=== PATIENT | female | born 1995 | race American Indian/Alaskan Native ===

== ENCOUNTER 2020-11-13 09:52 | Emergency (ER) | payer MEDICAID ==
[2020-11-13 10:09] VITALS: BP 134/90
[2020-11-13] MEDS ORDERED: ALBUTEROL 2.5 MG/3 ML NEBU IH ONE (12:41)
[2020-11-13] MEDS ORDERED: IPRATROPIUM 0.02% NEBU 2.5 ML IH ONE (12:41)
[2020-11-13] MEDS ORDERED: dexAMETHasone 20 MG/5 ML VIAL IV ONE (12:41)
[2020-11-13 13:13] LABS: Basophils % (Auto) 0.5 % (0.0-1.8); Eosinophils # (Auto) 0.5 K/mm3 (0.0-0.4); Eosinophils % (Auto) 5.1 % (0.0-4.3); Hematocrit 44.3 % (30.3-42.9); Hemoglobin 15.1 gm/dl (10.1-14.3); Lymphocytes # (Auto) 1.6 K/mm3 (1.2-5.4); Lymphocytes % (Auto) 17.2 % (13.4-35.0); Mean Corpuscular HGB Conc 34 % (30-34); Mean Corpuscular Volume 91 fl (79-97); Monocytes # (Auto) 0.5 K/mm3 (0.0-0.8); Monocytes % (Auto) 4.9 % (0.0-7.3); Platelet Count 346 K/mm3 (140-440); Red Blood Count 4.86 M/mm3 (3.65-5.03)
[2020-11-13 13:33] LABS: Alanine Aminotransferase 19 units/L (7-56); Albumin 4.5 g/dL (3.9-5); BUN/Creatinine Ratio 16; Blood Urea Nitrogen 14 mg/dL (7-17); Calcium 9.8 mg/dL (8.4-10.2); Hemolysis Index 8
[2020-11-13 13:37] LABS: INR 0.95 (0.87-1.13)
[2020-11-13 13:38] LABS: Partial Thromboplastin Time 28.4 Sec. (24.2-36.6)
--- NOTE | 2020-11-13 14:56 | XRay Report ---
CHEST 2 VIEWS INDICATION: Chest Pain. COMPARISON: None. FINDINGS: Support devices: None. Heart: Within normal limits. Lungs/Pleura: No acute air space or interstitial disease. No significant pleural effusion. IMPRESSION: No acute findings. Signer Name: Declan Soto MD Signed: 11/13/2020 2:51 PM Workstation Name: [id number]
--- NOTE | 2020-11-13 15:08 | Emergency Department Report ---
ED Asthma HPI - General Chief Complaint: Dyspnea/Respdistress Stated Complaint: ASTHMA Time Seen by Provider: 11/13/20 12:40 Source: patient Mode of arrival: Ambulatory Limitations: No Limitations - History of Present Illness Initial Comments: This is a 25-year-old female nontoxic, well nourished in appearance, no acute signs of distress presents to the ED with c/o of shortness of breath and wheezing times several days. Stated has some chest tightness but denies any pain. Patient stated has been taking her inhaler with no relief. Patient denies any cough. Patient denies any sick contact. Patient denies any recent travels, long car, recent hospital stays. Patient denies any calf pain or calf tenderness. Patient denies any chest pain, fever, chills, nausea, vomiting, hemoptysis, numbness, tingling, headache or stiff neck. Patient denies any allergies. MD Complaint: "asthma attack", shortness of breath, wheezing -: days(s) Asthma History: childhood onset Severity: mild Context: none known Associated Symptoms: none. denies: productive cough, dry cough, fever, chest pain, hemoptysis, leg edema, syncope Treatments Prior to Arrival: inhaled bronchodilator - Related Data Current Asthma Therapy: inhaled bronchodilator Previous Rx's Medication Instructions Recorded Last Taken Type Albuterol Mdi (or & Nicu Only) 2 puff IH QID PRN #8.5 gram 11/13/20 Unknown Rx [ProAir HFA Inhaler] Prednisone [predniSONE 10 mg 10 mg PO .TAPER #1 tab.ds.pk 11/13/20 Unknown Rx (6-Day Pack, 21 Tabs)] Allergies Allergy/AdvReac Type Severity Reaction Status Date / Time No Known Allergies Allergy Unverified 11/13/20 10:07 ED Review of Systems ROS: Stated complaint: ASTHMA Other details as noted in HPI Comment: All other systems reviewed and negative Constitutional: denies: chills, fever Eyes: denies: eye pain, eye discharge, vision change ENT: denies: ear pain, throat pain Respiratory: shortness of breath, wheezing. denies: cough, orthopnea, SOB with exertion, SOB at rest, stridor Cardiovascular: denies: chest pain, palpitations Endocrine: no symptoms reported Gastrointestinal: denies: abdominal pain, nausea, diarrhea Genitourinary: denies: urgency, dysuria, discharge Musculoskeletal: denies: back pain, joint swelling, arthralgia Skin: denies: rash, lesions Neurological: denies: headache, weakness, paresthesias Psychiatric: denies: anxiety, depression Hematological/Lymphatic: denies: easy bleeding, easy bruising ED Past Medical Hx - Past Medical History Previous Medical History?: Yes Hx Asthma: Yes - Surgical History Past Surgical History?: No - Medications Home Medications: Home Medications Medication Instructions Recorded Confirmed Last Taken Type Albuterol Mdi (or & Nicu Only) 2 puff IH QID PRN #8.5 gram 11/13/20 Unknown Rx [ProAir HFA Inhaler] Prednisone [predniSONE 10 mg 10 mg PO .TAPER #1 tab.ds.pk 11/13/20 Unknown Rx (6-Day Pack, 21 Tabs)] ED Physical Exam - General Limitations: No Limitations General appearance: alert, in no apparent distress - Head Head exam: Present: atraumatic, normocephalic - Eye Eye exam: Present: normal appearance - Neck Neck exam: Present: normal inspection, full ROM. Absent: lymphadenopathy - Respiratory Respiratory exam: Present: wheezes (Bilateral expiratory). Absent: respiratory distress, rales, rhonchi, stridor, chest wall tenderness, accessory muscle use, decreased breath sounds, prolonged expiratory - Cardiovascular Cardiovascular Exam: Present: regular rate, normal rhythm, tachycardia, normal heart sounds. Absent: bradycardia, irregular rhythm, systolic murmur, diastolic murmur, rubs, gallop - GI/Abdominal GI/Abdominal exam: Present: soft, normal bowel sounds. Absent: distended, tenderness, guarding, rebound, rigid, diminished bowel sounds - Extremities Exam Extremities exam: Present: normal inspection, full ROM - Back Exam Back exam: Present: normal inspection, full ROM. Absent: tenderness, CVA tenderness (R), CVA tenderness (L), muscle spasm, paraspinal tenderness, ve rtebral tenderness, rash noted - Neurological Exam Neurological exam: Present: alert, oriented X3, normal gait - Psychiatric Psychiatric exam: Present: normal affect, normal mood - Skin Skin exam: Present: warm, dry, intact, normal color. Absent: rash ED Course Vital Signs 11/13/20 10:08 Temperature 98.1 F Pulse Rate 111 H Respiratory 20 Rate Blood Pressure 134/90 [Right] O2 Sat by Pulse 94 Oximetry - Reevaluation(s) Reevaluation #1: 11/13/20 15:02 Patient is speaking in full sentences with no signs of distress noted. ED Medical Decision Making - Lab Data Result diagrams: 11/13/20 12:44 11/13/20 12:44 Lab Results 11/13/20 11/13/20 11/13/20 Range/Units 12:44 12:44 12:44 WBC 9.2 (4.5-11.0) K/mm3 RBC 4.86 (3.65-5.03) M/mm3 Hgb 15.1 H (10.1-14.3) gm/dl Hct 44.3 H (30.3-42.9) % MCV 91 (79-97) fl MCH 31 (28-32) pg MCHC 34 (30-34) % RDW 13.0 L (13.2-15.2) % Plt Count 346 (140-440) K/mm3 Lymph % (Auto) 17.2 (13.4-35.0) % Robertson % (Auto) 4.9 (0.0-7.3) % Eos % (Auto) 5.1 H (0.0-4.3) % Baso % (Auto) 0.5 (0.0-1.8) % Lymph # (Auto) 1.6 (1.2-5.4) K/mm3 Robertson # (Auto) 0.5 (0.0-0.8) K/mm3 Eos # (Auto) 0.5 H (0.0-0.4) K/mm3 Baso # (Auto) 0.0 (0.0-0.1) K/mm3 Seg Neutrophils % 72.3 H (40.0-70.0) % Seg Neutrophils # 6.7 (1.8-7.7) K/mm3 PT 13.2 (12.2-14.9) Sec. INR 0.95 (0.87-1.13) APTT 28.4 (24.2-36.6) Sec. D-Dimer (0-234) ng/mlDDU Sodium 134 L (137-145) mmol/L Potassium 4.7 (3.6-5.0) mmol/L Chloride 98.6 (98-107) mmol/L Carbon Dioxide 27 (22-30) mmol/L Anion Gap 13 mmol/L BUN 14 (7-17) mg/dL Creatinine 0.9 (0.6-1.2) mg/dL Estimated GFR > 60 ml/min BUN/Creatinine Ratio 16 % Glucose 86 (65-100) mg/dL Calcium 9.8 (8.4-10.2) mg/dL Total Bilirubin 0.40 (0.1-1.2) mg/dL AST 18 (5-40) units/L ALT 19 (7-56) units/L Alkaline Phosphatase 104 (35-129) units/L Troponin T < 0.010 (0.00-0.029) ng/mL Total Protein 8.4 H (6.3-8.2) g/dL Albumin 4.5 (3.9-5) g/dL Albumin/Globulin Ratio 1.2 % HCG, Qual (Negative) 11/13/20 11/13/20 Range/Units 12:44 13:32 WBC (4.5-11.0) K/mm3 RBC (3.65-5.03) M/mm3 Hgb (10.1-14.3) gm/dl Hct (30.3-42.9) % MCV (79-97) fl MCH (28-32) pg MCHC (30-34) % RDW (13.2-15.2) % Plt Count (140-440) K/mm3 Lymph % (Auto) (13.4-35.0) % Robertson % (Auto) (0.0-7.3) % Eos % (Auto) (0.0-4.3) % Baso % (Auto) (0.0-1.8) % Lymph # (Auto) (1.2-5.4) K/mm3 Robertson # (Auto) (0.0-0.8) K/mm3 Eos # (Auto) (0.0-0.4) K/mm3 Baso # (Auto) (0.0-0.1) K/mm3 Seg Neutrophils % (40.0-70.0) % Seg Neutrophils # (1.8-7.7) K/mm3 PT (12.2-14.9) Sec. INR (0.87-1.13) APTT (24.2-36.6) Sec. D-Dimer 163.26 (0-234) ng/mlDDU Sodium (137-145) mmol/L Potassium (3.6-5.0) mmol/L Chloride (98-107) mmol/L Carbon Dioxide (22-30) mmol/L Anion Gap mmol/L BUN (7-17) mg/dL Creatinine (0.6-1.2) mg/dL Estimated GFR ml/min BUN/Creatinine Ratio % Glucose (65-100) mg/dL Calcium (8.4-10.2) mg/dL Total Bilirubin (0.1-1.2) mg/dL AST (5-40) units/L ALT (7-56) units/L Alkaline Phosphatase (35-129) units/L Troponin T (0.00-0.029) ng/mL Total Protein (6.3-8.2) g/dL Albumin (3.9-5) g/dL Albumin/Globulin Ratio % HCG, Qual Negative (Negative) - EKG Data 11/13/20 15:40 EKG normal sinus rhythm at 97 bpm. No STEMI. Reviewed and signed by . - Radiology Data [facility] [address] [place] [address] XRay Report Signed Patient: TONI TAVERAS MR#: [id number] : 1995 Acct:[id number] Age/Sex: 25 / F ADM Date: 11/13/20 Loc: ED Attending Dr: Ordering Physician: NICOLAS BHANDARI NP Date of Service: 11/13/20 Procedure(s): XR chest routine 2V Accession Number(s): [id number] cc: NICOLAS BHANDARI NP Fluoro Time In Minutes: CHEST 2 VIEWS INDICATION: Chest Pain. COMPARISON: None. FINDINGS: Support devices: None. Heart: Within normal limits. Lungs/Pleura: No acute air space or interstitial disease. No significant pleural effusion. IMPRESSION: No acute findings. Signer Name: Declan Soto MD Signed: 11/13/2020 2:51 PM Workstation Name: [id number] Transcribed By: ES Dictated By: Declan Soto MD Electronically Authenticated By: Declan Soto MD Signed Date/Time: 11/13/201450 DD/ 50 TD/TT: - Medical Decision Making This is a 25-year-old female that presents with asthma exacerbation. Patient is stable and was examined by me. Chest x-ray has been obtained and dictated by the radiologist within normal limits. Patient is notified of the x-ray report with no questions noted by the patient. Patient did receive breathing treatment and steroids in the ED which patient the symptoms has resolved and subsided. Posttreatment and there is no wheezing upon auscultation. Patient is discharged with albuterol and prednisone. VSS stable at discharge (see EKG for updated HR). Patient was referred to Follow-up with a primary care doctor in 3-5 days or if symptoms worsen and continue return to emergency room as soon as possible. At time of discharge, the patient does not seem toxic or ill in appearance. No acute signs of distress noted. Patient agrees to discharge treatment plan of care. No further questions noted by the patient. This chart is dictated with using [employer] Dictation Program - Differential Diagnosis PE, bronchiolitis, asthma excerbation Critical care attestation.: If time is entered above; I have spent that time in minutes in the direct care of this critically ill patient, excluding procedure time. ED Disposition Clinical Impression: Asthma exacerbation Qualifiers: Asthma severity: mild Asthma persistence: intermittent Qualified Code(s): J45.21 - Mild intermittent asthma with (acute) exacerbation Disposition: -01 TO HOME OR SELFCARE Is pt being admited?: No Does the pt Need Aspirin: No Condition: Stable Instructions: Asthma, Adult, [id number], Asthma Attack Prevention, Adult Additional Instructions: Follow-up with a primary care doctor in 3-5 days or if symptoms worsen and continue return to emergency room as soon as possible. Prescriptions: Prednisone [predniSONE 10 mg (6-Day Pack, 21 Tabs)] 10 mg PO .TAPER #1 tab.ds.pk Albuterol Mdi (or & Nicu Only) [ProAir HFA Inhaler] 2 puff IH QID PRN #8.5 gram PRN Reason: Shortness Of Breath Referrals: AMBER ELIZABETH [Other] - 3-5 Days PRIMARY CAREMD [Referring] - 3-5 Days TRUE BRITTON MD [Staff Physician] - 3-5 Days Forms: Work/School Release Form(ED) Time of Disposition: 15:14
--- NOTE | 2020-11-14 10:10 | Electrocardiograph Report ---
[facility] Test Date: 2020-11-13 Test Time: 15:19:17 Pat Name: TONI TAVERAS Department: Room: Gender: F [employer]er: NIDIA : 1995 Requested By: NICOLAS BHANDARI Order Number: [id number] Reading MD: Clayton Landeros Measurements Intervals Brohman Rate: 97 P: 59 SD: 176 QRS: 58 QRSD: 84 T: -33 QT: 342 QTc: 436 Interpretive Statements Sinus rhythm Probable left atrial enlargement Borderline T abnormalities, diffuse leads No previous ECG available for comparison Electronically Signed On 11-14-2020 10:10:41 EDT by Clayton Landeros
== END 2020-11-13 15:43 | disposition home or self-care (01) ==
LOC: ED 09:52
DX: J45.21 Mild intermittent asthma with (acute) exacerbation (principal)
CPT/HCPCS: 36415; 71046; 80053; 84484; 84703; 85025; 85379; 85610; 85730; 93005; 94640; 96374; 99284; J1100

== ENCOUNTER 2020-12-30 09:36 | Emergency (ER) | payer MEDICAID ==
--- NOTE | 2020-12-30 11:10 | Emergency Department Report ---
ED Asthma HPI - General Stated Complaint: ASTHMA Time Seen by Provider: 12/30/20 10:58 - History of Present Illness Initial Comments: Patient presents secondary to an asthma attack. For the last 2 days, she has had trouble breathing. She has had a dry cough. She has been wheezing. She has been using her inhaler without symptomatic improvement. There is no history of recent travel or trauma. She has had no sick contacts. She has had no known allergen exposure. She has been using her inhaler multiple times a day without improvement. She states that she was on prednisone about a month or 2 ago. That seemed to help at that time. She is not on inhaled steroid because her insurance would not pay for it. She has not taken an inhaled steroid for approximately 2 years. Again, she has been admitted before but never intubated. - Related Data Previous Rx's Medication Instructions Recorded Last Taken Type Albuterol Mdi (or & Nicu Only) 2 puff IH QID PRN #8.5 gram 11/13/20 Unknown Rx [ProAir HFA Inhaler] Prednisone [predniSONE 10 mg 10 mg PO .TAPER #1 tab.ds.pk 11/13/20 Unknown Rx (6-Day Pack, 21 Tabs)] Budesonide/Formoterol Fumarate 10.2 gm IH DAILY #1 hfa.aer.ad 12/30/20 Unknown Rx [Symbicort 160-4.5 Mcg Inhaler] Ipratropium [Atrovent] 0.5 mg IH Q6HRT #90 ml 12/30/20 Unknown Rx Prednisone [predniSONE 10 mg 10 mg PO .TAPER #1 tab.ds.pk 12/30/20 Unknown Rx (6-Day Pack, 21 Tabs)] Allergies Allergy/AdvReac Type Severity Reaction Status Date / Time No Known Allergies Allergy Unverified 11/13/20 10:07 ED Review of Systems ROS: Stated complaint: ASTHMA Other details as noted in HPI Comment: All other systems reviewed and negative Constitutional: denies: fever Eyes: denies: eye pain ENT: denies: throat pain Respiratory: no symptoms reported Cardiovascular: denies: chest pain Endocrine: denies: unexplained weight loss Gastrointestinal: denies: abdominal pain Genitourinary: denies: dysuria Musculoskeletal: denies: back pain Skin: denies: rash Neurological: denies: headache Hematological/Lymphatic: denies: easy bruising ED Past Medical Hx - Past Medical History Previous Medical History?: Yes Hx Asthma: Yes - Family History Family history: no significant - Medications Home Medications: Home Medications Medication Instructions Recorded Confirmed Last Taken Type Albuterol Mdi (or & Nicu Only) 2 puff IH QID PRN #8.5 gram 11/13/20 Unknown Rx [ProAir HFA Inhaler] Prednisone [predniSONE 10 mg 10 mg PO .TAPER #1 tab.ds.pk 11/13/20 Unknown Rx (6-Day Pack, 21 Tabs)] Budesonide/Formoterol Fumarate 10.2 gm IH DAILY #1 hfa.aer.ad 12/30/20 Unknown Rx [Symbicort 160-4.5 Mcg Inhaler] Ipratropium [Atrovent] 0.5 mg IH Q6HRT #90 ml 12/30/20 Unknown Rx Prednisone [predniSONE 10 mg 10 mg PO .TAPER #1 tab.ds.pk 12/30/20 Unknown Rx (6-Day Pack, 21 Tabs)] ED Physical Exam - General Limitations: No Limitations, Other ( Pulse ox was noted and normal.) General appearance: alert, in distress ( Mild to moderate) - Head Head exam: Present: atraumatic, normocephalic, normal inspection - Eye Eye exam: Present: normal appearance, EOMI. Absent: scleral icterus - ENT ENT exam: Present: normal exam, normal orophraynx, normal external ear exam - Neck Neck exam: Present: normal inspection. Absent: meningismus - Respiratory Respiratory exam: Present: respiratory distress ( mild to moderate), wheezes ( bilateral), prolonged expiratory - Cardiovascular Cardiovascular Exam: Present: regular rate, normal rhythm - GI/Abdominal GI/Abdominal exam: Present: soft. Absent: tenderness - Extremities Exam Extremities exam: Present: normal capillary refill. Absent: pedal edema - Back Exam Back exam: Present: full ROM - Neurological Exam Neurological exam: Present: alert, oriented X3, CN II-XII intact, reflexes normal. Absent: motor sensory deficit - Psychiatric Psychiatric exam: Present: normal affect - Skin Skin exam: Present: warm, dry ED Course Vital Signs 12/30/20 13:10 Pulse Rate [ 93 H Anterior Bilateral Throughout] Respiratory 15 Rate [Anterior Bilateral Throughout] - Reevaluation(s) Reevaluation #1: 12/30/20 11:00 DuoNeb and prednisone were ordered. Reevaluation #2: 12/30/20 11:24 After treatment, patient felt better. She was not hypoxic. She was discharged. ED Medical Decision Making - Medical Decision Making Patient presented with shortness of breath and asthma exacerbation. She does not have evidence of respiratory failure. She certainly does not require ad mission. Patient does not appear to be hypoxic. She does not have respiratory symptoms consistent with Covid. There has been no cough or infectious pathology noted. She was treated empirically with medications and referred for outpatient evaluation and follow-up. She does not have chest pain and does not have hypoxia that would suggest pulmonary embolism. She certainly does not have evidence of respiratory distress or pedal edema suggestive of congestive heart failure. Critical Care Time: No Critical care attestation.: If time is entered above; I have spent that time in minutes in the direct care of this critically ill patient, excluding procedure time. ED Disposition Clinical Impression: Asthma exacerbation Disposition: HOME / SELF CARE / HOMELESS Is pt being admited?: No Does the pt Need Aspirin: No Condition: Stable Instructions: Asthma, Adult Additional Instructions: Drink plenty water. Return for problems. Follow-up with your regular doctor. Use the medications as prescribed. Prescriptions: Ipratropium [Atrovent] 0.5 mg IH Q6HRT #90 ml Prednisone [predniSONE 10 mg (6-Day Pack, 21 Tabs)] 10 mg PO .TAPER #1 tab.ds.pk Budesonide/Formoterol Fumarate [Symbicort 160-4.5 Mcg Inhaler] 10.2 gm IH DAILY #1 hfa.aer.ad Referrals: JUAN MENDIETA MD [Primary Care Provider] - 3-5 Days NACHO RAYMOND MD [Staff Physician] - 3-5 Days
[2020-12-30] MEDS: predniSONE 20 MG TAB PO ONE (12:58)
[2020-12-30] MEDS: IPRATROPIUM 0.02% NEBU 2.5 ML IH ONE (13:10)
[2020-12-30] MEDS: ALBUTEROL 2.5 MG/3 ML NEBU IH ONE (13:10)
[2020-12-30 14:07] VITALS: BP 148/92
== END 2020-12-30 14:05 | disposition home or self-care (01) ==
LOC: ED 09:36
DX: J45.901 Unspecified asthma with (acute) exacerbation (principal)
CPT/HCPCS: 94640; 99283; J7512; 94644